=== PATIENT | male | born 1940 | race Caucasian/White ===

== ENCOUNTER 2019-02-25 11:07 | Emergency (ER) | payer MEDICARE ==
[2019-02-25 11:54] VITALS: BP 141/70
[2019-02-25] MEDS ORDERED: Lidocaine 1% MPF ** 5 ML VIAL INJ ONE ×2 (12:08→12:34)
--- NOTE | 2019-02-25 13:13 | UC ---
Laceration HPI - HPI Summary HPI Summary: Pt presents with c/o laceration to left hand that occurred today just prior to arrival to . Pt was cutting branches and branch "swung back" and hit his left hand along the metacarpalphalangeal crease. Pt states his last tetanus was 3 years ago. - History Of Current Complaint Chief Complaint: UCWounds Stated Complaint: LEFT HAND LACERATION Time Seen by Provider: 02/25/19 12:01 Hx Obtained From: Patient Laceration Location: Hand - left Mechanism Of Injury: Blunt Trauma - branch of tree Onset/Duration: Sudden Onset Severity: Moderate Pain Intensity: 0 Aggravating Factors: Movement Related History: Dominant Hand Right - Allergies/Home Medications Allergies/Adverse Reactions: Allergies Allergy/AdvReac Type Severity Reaction Status Date / Time No Known Allergies Allergy Verified 02/25/19 11:54 PMH/Surg Hx/FS Hx/Imm Hx Previously Healthy: Yes Cardiovascular History: Hypertension - Surgical History Surgical History: None - Family History Known Family History: Positive: Cardiac Disease - Social History Occupation: Retired Lives: With Family Alcohol Use: None Substance Use Type: None Smoking Status (MU): Never Smoked Tobacco Have You Smoked in the Last Year: No - Immunization History Most Recent Tetanus Shot: 3 years ago Vaccination Up to Date: Yes Review of Systems All Other Systems Reviewed And Are Negative: Yes Constitutional: Positive: Negative Skin: Positive: Other - laceration left hand Eyes: Positive: Negative ENT: Positive: Negative Respiratory: Positive: Negative Cardiovascular: Positive: Negative Gastrointestinal: Positive: Negative Genitourinary: Positive: Negative Motor: Positive: Negative Neurovascular: Positive: Negative Musculoskeletal: Positive: Myalgia - at laceration site Neurological: Positive: Negative Psychological: Positive: Negative Is Patient Immunocompromised?: No Physical Exam Triage Information Reviewed: Yes Appearance: Well-Appearing Vital Signs: Initial Vital Signs Temp 97.6 F 02/25/19 11:49 Pulse 57 02/25/19 11:49 Resp 18 02/25/19 11:49 BP 141/70 02/25/19 11:49 Pulse Ox 97 02/25/19 11:49 Vital Signs Reviewed: Yes Eye Exam: Normal ENT Exam: Normal Dental Exam: Normal Neck exam: Normal Respiratory: Positive: No respiratory distress Musculoskeletal Exam: Normal Musculoskeletal: Positive: Strength Intact, ROM Intact Neurological Exam: Normal Psychological Exam: Normal Skin Exam: Other - laceration left hand at metcarpal phalangeal crease base of left thumb Laceration Repair - Laceration Repair 1 Description: Linear Laceration Size After Repair: Length (cm) - 3, Width (mm) - 10, Depth (mm) - 2 Modified For Repair: No Type Injection: Local Anesthesia Used: 1.0% Lido - 7 ml injected Cleansing Completed Via Routine Prep: Yes Irrigation With Pressure Irrigation Device: Yes Closure Material: Sutures - 8 sutures of 4-0 prolene placed Closure Method: Single Layer Suture Of: Skin Suture Type: Prolene Laceration Course/Dx - Differential Dx - Laceration/Wound Differental Diagnoses: Laceration, Tendon Laceration - Diagnosis Provider Diagnosis: Laceration of left hand Discharge - Sign-Out/Discharge Documenting (check all that apply): Patient Departure All imaging exams completed and their final reports reviewed: No Studies - Discharge Plan Condition: Stable Disposition: HOME Prescriptions: Cephalexin CAP* [Keflex 500 CAP*] 500 mg PO Q8H #21 cap Patient Education Materials: Care For Your Stitches (ED), Laceration (ED) Referrals: Lisa James PA [Primary Care Provider] - If Needed Additional Instructions: Please return to clinic to have sutures removed in 10-14 days. Please monitor for signs and symptoms of infection that include but are not limited to fever, chills, purulent discharge, increased redness and tenderness at laceration site. You have had 8 sutures placed at your wound site. Please keep wound clean dry and covered until sutures are removed. Do not place undue stress to the wound site. You may gently wash the area in 24-48 hours. - Billing Disposition and Condition Condition: STABLE Disposition: Home
== END 2019-02-25 13:16 | disposition home or self-care (01) ==
LOC: UCCORT 11:07
DX: S61.412A Laceration without foreign body of left hand, initial encounter (principal); W22.8XXA Striking against or struck by other objects, initial encounter; Y93.H2 Activity, gardening and landscaping; Y92.9 Unspecified place or not applicable; I10 Essential (primary) hypertension
CPT/HCPCS: 12002; 99212; G0463

== ENCOUNTER 2019-03-10 08:57 | Emergency (ER) | payer MEDICARE ==
[2019-03-10 09:12] VITALS: BP 147/69
--- NOTE | 2019-03-10 09:52 | UC ---
Laceration HPI - HPI Summary HPI Summary: 78 yo male 13 days s/p lac repair of left thumb web no complaints - History Of Current Complaint Chief Complaint: UCLaceration Stated Complaint: LEFT HAND SUTURE REMOVAL Time Seen by Provider: 03/10/19 09:42 Hx Obtained From: Patient Laceration Location: Hand Onset/Duration: Sudden Onset Severity: Mild Pain Intensity: 0 Pain Scale Used: 0-10 Numeric Aggravating Factors: Nothing Hands: 1 - slight red and swollen, no pus and non tender - Allergies/Home Medications Allergies/Adverse Reactions: Allergies Allergy/AdvReac Type Severity Reaction Status Date / Time No Known Allergies Allergy Verified 03/10/19 09:10 PMH/Surg Hx/FS Hx/Imm Hx Previously Healthy: Yes Cardiovascular History: Hypertension - Surgical History Surgical History: Yes Surgery Procedure, Year, and Place: hernia repair - Family History Known Family History: Positive: Cardiac Disease, Hypertension - Social History Alcohol Use: None Substance Use Type: None Smoking Status (MU): Never Smoked Tobacco Have You Smoked in the Last Year: No - Immunization History Most Recent Tetanus Shot: 3 years ago Vaccination Up to Date: Yes Review of Systems All Other Systems Reviewed And Are Negative: Yes Constitutional: Positive: Negative Skin: Positive: Negative Eyes: Positive: Negative ENT: Positive: Negative Respiratory: Positive: Negative Cardiovascular: Positive: Negative Gastrointestinal: Positive: Negative Genitourinary: Positive: Negative Motor: Positive: Negative Neurovascular: Positive: Negative Musculoskeletal: Positive: Negative Neurological: Positive: Negative Psychological: Positive: Negative Physical Exam Triage Information Reviewed: Yes Appearance: Well-Appearing, No Pain Distress, Well-Nourished Vital Signs: Initial Vital Signs Temp 98.4 F 03/10/19 09:10 Pulse 57 03/10/19 09:10 Resp 17 03/10/19 09:10 BP 147/69 03/10/19 09:10 Pulse Ox 98 03/10/19 09:10 Vital Signs Reviewed: Yes Eyes: Positive: Conjunctiva Clear ENT: Positive: Hearing grossly normal. Negative: Nasal congestion, Nasal drainage, Trismus, Muffled voice, Hoarse voice Neck: Positive: Supple, Nontender, No Lymphadenopathy Respiratory: Positive: Lungs clear, Normal breath sounds, No respiratory distress, No accessory muscle use Cardiovascular: Positive: RRR, No Murmur Musculoskeletal: Positive: Other: - see image Neurological: Positive: Alert Psychological Exam: Normal Skin Exam: Other - see image Laceration Course/Dx - Course/Dx Course Of Treatment: sutures removed, steri strips applies - Diagnosis Provider Diagnosis: Encounter for removal of sutures Discharge - Sign-Out/Discharge Documenting (check all that apply): Patient Departure All imaging exams completed and their final reports reviewed: No Studies - Discharge Plan Condition: Stable Disposition: HOME Prescriptions: Cephalexin CAP* [Keflex CAP*] 500 mg PO TID #21 cap Referrals: Lisa James PA [Primary Care Provider] - Additional Instructions: sutures removed steri strips applied recheck in one week if not completely better - Billing Disposition and Condition Condition: STABLE Disposition: Home
== END 2019-03-10 10:04 | disposition home or self-care (01) ==
LOC: UCCORT 08:57
DX: Z48.02 Encounter for removal of sutures (principal)